=== PATIENT | male | born 1985 | race Two or more races ===

== ENCOUNTER 2021-04-02 09:13 | Emergency (ER) | payer SELFPAY ==
[~2021-04-02] VITALS: Ht 170.2 cm; Wt 136.1 kg
[2021-04-02 09:33] VITALS: BP 169/111
== END 2021-04-02 11:19 | disposition home or self-care (01) ==
LOC: ER 09:13
DX: S93.401A Sprain of unspecified ligament of right ankle, initial encounter (principal); W19.XXXA Unspecified fall, initial encounter; Y93.89 Activity, other specified; Y92.89 Other specified places as the place of occurrence of the external cause; Y99.8 Other external cause status
CPT/HCPCS: 73610

== ENCOUNTER 2022-10-22 09:54 | Emergency (ER) | payer MEDICAID ==
[~2022-10-22] VITALS: Ht 170.2 cm; Wt 155.0 kg
[2022-10-22 13:30] LABS: Basophils # (auto) 0 10 ^3/uL (0-0.2); Basophils % (auto) 0.2 % (0.0-2.0); Eosinophils # (auto) 0.1 10 ^3/uL (0-0.8); Eosinophils % (auto) 0.6 % (0.0-7.0); Hematocrit 43.2 % (41.0-53.0); Hemoglobin 15.2 g/dL (13.5-17.5); Lymphocytes # (auto) 1.8 10 ^3/uL (0.4-5.4); Lymphocytes % (auto) 16.8 % (10.0-50.0); Mean Corpuscular Hemoglobin 31.8 pg (28.0-32.0); Mean Corpuscular Hgb Conc. 35.1 g/dL (32.0-36.0); Mean Corpuscular Volume 90.5 fL (80.0-100.0); Monocytes # (auto) 0.5 10 ^3/uL (0-1.3); Monocytes % (auto) 4.4 % (0.0-12.0); Neutrophils # (auto) 8.1 10 ^3/uL (1.6-8.6); Nucleated Red Blood Cells % 0.2 %; Red Blood Cells 4.77 10^6/uL (4.5-5.90); Red Cell Distribution Width 12.2 % (11.8-14.3); White Blood Cell 10.4 10^3/uL (4.4-10.8)
[2022-10-22 13:44] LABS: Albumin 3.7 g/dL (3.4-5.0); BUN/Creatinine Ratio 18.7; Calcium 8.9 mg/dL (8.5-10.1); Potassium 3.8 mmol/L (3.5-5.1)
[2022-10-22 13:47] LABS: Bilirubin, Total 0.4 mg/dL (0.2-1.0); Total Protein 7.7 g/dL (6.4-8.2)
[2022-10-22 14:09] VITALS: BP 153/106
== END 2022-10-22 14:28 | disposition home or self-care (01) ==
LOC: ER 09:54
DX: I73.9 Peripheral vascular disease, unspecified (principal); E66.01 Morbid (severe) obesity due to excess calories; Z68.43 Body mass index [BMI] 50.0-59.9, adult
CPT/HCPCS: 36415; 80053; 85025; 93971

== ENCOUNTER 2025-07-01 12:05 | Inpatient (IN) | payer MEDICAID ==
[~2025-07-01] VITALS: Ht 170.2 cm; Wt 161.5 kg
--- NOTE | 2025-07-01 13:15 | ED.PDOC ---
History of Present Illness(SKN HPI Comments This is a 40 year old male presenting to the ED with chief complaint of abscesses. Patient reports that he has been experiencing an painful, red, swollen region to his right buttocks that has been draining pus for the past few days along with another swollen, painful region with drainage to the left groin. Patient relays that he followed up with his PCP today and was advised to come to the ED for further evaluation. Patient denies any fever, chills, or bleeding. Chief Complaint: Abscess Time Seen by MD: 13:14 History of Present Illness: Nurses Notes, Medications, Allergies Allergies: Coded Allergies: NO KNOWN ALLERGIES (Unverified , 04/02/21) Information Source: Patient Mode of Arrival: Ambulatory Severity: Moderate Timing: Days Duration: Since onset Prehospital treatment: None Location: Buttock, Other (Groin) Mechanism: Spontaneous Onset Object: None Condition of Object: None Retained Foreign Body: No Wound Type: Abscess Immunization Status of Animal: NA Past Medical History PAST MEDICAL HISTORY: Denies Surgical History: Denies all surgeries Family History Family History: Reviewed,noncontributory to illness Social History Smoker: Non-Smoker Alcohol: Denies ETOH Use Drugs: Denies Drug Use Lives In: Home Constitutional: denies: chills, diaphoresis, fatigue, fever, malaise, sweats, weakness, others EENTM: denies: blurred vision, double vision, ear bleeding, ear discharge, ear drainage, ear pain, ear ringing, eye pain, eye redness, hearing loss, mouth pain, mouth swelling, nasal discharge, nose bleeding, nose congestion, nose pain, photophobia, tearing, throat pain, throat swelling, voice changes, others Respiratory: denies: cough, hemoptysis, orthopnea, SOB at rest, shortness of breath, SOB with excertion, stridor, wheezing, others Cardiovascular: denies: chest pain, dizzy spells, diaphoresis, Dyspnea on exertion, edema, irregular heart beat, left arm pain, lightheadedness, palpitations, PND, syncope, others Gastrointestinal: denies: abdomen distended, abdominal pain, blood streaked bowels, constipated, diarrhea, dysphagia, difficulty swallowing, hematemesis, melena, nausea, poor appetite, poor fluid intake, rectal bleeding, rectal pain, vomiting, others Genitourinary: denies: burning, dysuria, flank pain, frequency, hematuria, incontinence, penile discharge, penile sore, pain, testicle pain, testicle swelling, urgency, others Neurological: denies: dizziness, fainting, headache, left sided numbness, left sided weakness, numbness, paresthesia, pre-existing deficit, right sided numbn ess, right sided weakness, seizure, speech problems, tingling, tremors, weakness, others Musculoskeletal: denies: back pain, gout, joint pain, joint swelling, muscle pain, muscle stiffness, neck pain, others Integumetry: reports: wounds (Abscess); denies: bruises, change in color, change in hair/nails, dryness, laceration, lesions, lumps, rash, others Allergic/Immunocompromised: denies: Difficulty Healing, Frequent Infections, Hives, Itching, others Hematologic/Lymphatic: denies: anemia, blood clots, easy bleeding, easy bruis ing, swollen glands, others Endocrine: denies: excessive hunger, excessive sweating, excessive thirst, exc essive urination, flushing, intolerance to cold, intolerance to heat, unexplained weight gain, unexplained weight loss, others Psychiatric: denies: anxiety, bipolar disorder, depression, hopeless, panic disorder, schizophrenia, sleepless, suicidal, others All Other Systems: Reviewed and Negative Physical Exam General Appearance: No Apparent Distress, Normal HEENT: Normal ENT Inspection, Pharynx Normal, TMs Normal Neck: Full Range of Motion, Non-Tender, Normal, Normal Inspection Respiratory: Chest Non-Tender, Lungs Clear, No Accessory Muscle Use, No Respiratory Distress, Normal Breath Sounds Cardiovascular: No Edema, No JVD, No Murmur, No Gallop, Normal Peripheral Pulses, Regular Rate/Rhythm Breast Exam: Deferred Gastrointestinal: No Organomegaly, Non Tender, No Pulsatile Mass, Normal Bowel Sounds, Soft Genitalia: Deferred Pelvic: Deferred Rectal: Deferred Extremities: No calf tenderness, Normal capillary refill, Normal inspection, Normal range of motion, Non-tender, No pedal edema Musculoskeletal : Apperance: Normal Neurologic: Alert, envelope maker II-XII nml as Tested, No Motor Deficits, Normal Affect, Normal Mood, No Sensory Deficits Cerebellar Function: Normal Reflexes: Normal Skin: Dry, Normal Color, Warm, Other (Large abscess to right buttock and left groin with purulent drainage.) Lymphatic: No Adenopathy Was a procedure done? Was a procedure done?: No Differential Diagnosis (INTG) Differential Diagnosis: Cellulitis Differential Diagnosis: Abscess X-Ray, Labs, Meds, VS Vital Signs Date Time Temp Pulse Resp B/P (MAP) Pulse Ox O2 Delivery O2 Flow Rate FiO2 07/01/25 15:00 97.4 93 16 149/94 (112) 95 97.4 07/01/25 12:07 97.9 116 20 148/111 97 97.9 Lab Test 07/01/25 13:37 Range/Units White Blood Count 12.1 H 4.4-10.8 10^3/uL Red Blood Count 4.83 4.5-5.90 10^6/uL Hemoglobin 15.5 13.5-17.5 g/dL Hematocrit 45.0 41.0-53.0 % Mean Corpuscular Volume 93.2 80.0-100.0 fL Mean Corpuscular Hemoglobin 32.1 H 28.0-32.0 pg Mean Corpuscular Hemoglobin Concent 34.4 32.0-36.0 g/dL Red Cell Distribution Width 12.9 11.8-14.3 % Platelet Count 281 140-450 10^3/uL Mean Platelet Volume 7.8 6.9-10.8 fL Neutrophils (%) (Auto) 76.1 37.0-80.0 % Lymphocytes (%) (Auto) 15.2 10.0-50.0 % Monocytes (%) (Auto) 7.8 0.0-12.0 % Eosinophils (%) (Auto) 0.6 0.0-7.0 % Basophils (%) (Auto) 0.3 0.0-2.0 % Neutrophils # (Auto) 9.2 H 1.6-8.6 10 ^3/uL Lymphocytes # (Auto) 1.8 0.4-5.4 10 ^3/uL Monocytes # (Auto) 0.9 0-1.3 10 ^3/uL Eosinophils # (Auto) 0.1 0-0.8 10 ^3/uL Basophils # (Auto) 0 0-0.2 10 ^3/uL Nucleated Red Blood Cells 0.1 % Prothrombin Time 9.8 9.3-11.8 sec Prothrombin Time INR 0.92 0.9-1.15 Activated Partial Thromboplast Time 29.5 24.5-34.5 SEC Sodium Level 138 136-145 mmol/L Potassium Level 4.5 3.5-5.1 mmol/L Chloride Level 107 98-107 mmol/L Carbon Dioxide Level 24 20-31 mmol/L Anion Gap 7 5-15 Blood Urea Nitrogen 15 9-23 mg/dL Creatinine 0.92 0.700-1.30 mg/dL Glomerular Filtration Rate Calc 108 >90 mL/min BUN/Creatinine Ratio 16.3 10.0-20.0 Serum Glucose 96 74-106 mg/dL Calcium Level 9.5 8.7-10.4 mg/dL Time of 1ST Reevaluation: 14:13 Reevaluation 1ST: Improved Patient Education/Counseling: Diagnosis, Treatment Family Education/Counseling: No Family Present SEPSIS Sepsis Screen Date sepsis recognized/suspect: Jul 01, 2025 Time Sepsis recognized/suspect: 1212 Recent Procedure: No On Antibiotic Therapy: No Respiratory Rate >20: No Heart Rate >90: Yes Temp<36 C (96.8 F) or >38.3 C: No SBP <90 or MAP <65 mmHG: No New Acute Mental Status Change: No Is the patient on CPAP, BIPAP,: No Physician Orders Ct Ab Pel With Iv Con Only (07/01/25 15:51) Vital Signs Date Time Temp Pulse Resp B/P (MAP) Pulse Ox O2 Delivery O2 Flow Rate FiO2 07/01/25 15:00 97.4 93 16 149/94 (112) 95 97.4 07/01/25 12:07 97.9 116 20 148/111 97 97.9 Laboratory Tests Test 07/01/25 13:37 White Blood Count 12.1 10^3/uL (4.4-10.8) H Departure 1 Departure Time of Disposition: 17:33 (Patient with multiple purulent abscesses surrounding by a worsening cellulitis. We will empirically cover patient with antibiotics and admit patient for further workup and expert consultation) Impression: Primary Impression: Cellulitis and abscess of buttock Disposition: ADMITTED INPATIENT Admit to: Med Surg Condition: Serious Critical Care Note Critical Care Time?: No Stability Stability form required: No Heart Score Heart Score: Heart Score Response (Comments) Value History N/A 0 EKG N/A 0 Age N/A 0 Risk Factors N/A 0 Troponin N/A 0 Total 0 I personally scribed for DAKOTA COPE MD ([email or web address]) on 07/01/25 at 13:15. Electronically submitted by Dhaval Olson ([email or web address]). DAKOTA COPE MD Jul 01, 2025 13:15
[2025-07-01 13:45] LABS: Hematocrit 45.0 % (41.0-53.0); Hemoglobin 15.5 g/dL (13.5-17.5); Mean Corpuscular Hemoglobin 32.1 pg (28.0-32.0); Mean Corpuscular Volume 93.2 fL (80.0-100.0); Nucleated Red Blood Cells % 0.1 %
[2025-07-01 13:56] LABS: Chloride 107 mmol/L (98-107); Potassium 4.5 mmol/L (3.5-5.1); Sodium 138 mmol/L (136-145)
[2025-07-01 13:57] LABS: Anion Gap 7 (5-15); Calcium 9.5 mg/dL (8.7-10.4); Carbon Dioxide 24 mmol/L (20-31)
[2025-07-01 13:59] LABS: INR 0.92 (0.9-1.15); Partial Thromboplastin Time 29.5 SEC (24.5-34.5); Prothrombin Time 9.8 sec (9.3-11.8)
[2025-07-01 14:02] LABS: BUN/Creatinine Ratio 16.3 (10.0-20.0); Blood Urea Nitrogen 15 mg/dL (9-23); Glucose 96 mg/dL (74-106)
[2025-07-01] MEDS: IOHEXOL 300 MG/ML 100ML BOTTLE IJ ONE (16:27)
--- NOTE | 2025-07-01 17:12 | DVH ---
Exam: CT CT AB PEL WITH IV CON ONLY History: concern for perirecal abscess Comparison Study: None TECHNIQUE: Multidetector CT of the abdomen pelvis with IV contrast. Axial, coronal and sagittal multi planar reformats were obtained from the axial data set by the technologist. Radiation Dose Information: CT Dose: CTDI volume is 27.62 mGy. Dose-length product is 3.92 mGy*cm FINDINGS: The lung bases are clear. Partially visualized heart is unremarkable. Mild hepatomegaly. Otherwise, liver, spleen, pancreas and adrenal glands are unremarkable. Cholelith iasis with no CT evidence of acute cholecystitis. Polycystic kidneys with the largest on the left measuring up to 2.8 cm and the largest on the right m easuring up to 4.5 cm. There are additional hypodense bilateral renal lesions which do not measure si mple fluid with additional multiple subcentimeter hypodense lesions too small to characterize. No Hyd ro nephrosis . 2 mm right renal lower pole nonobstructing calculus. Bilateral ureters and urinary jacky dder unremarkable. Prostate is unremarkable. Stomach is unremarkable. Small bowel loops unremarkable. Appendix is unremarkable. Small to moderate amount of fecal material within the colon. Sigmoid diverticulosis without diverticulitis. No evidence of intraperitoneal free air or free fluid. No evidence of aortic aneurysm or dissection. No significant mesenteric . No evidence of acute osseous abnormalities. lymphadenopathy. IMPRESSION: Cholelithiasis without evidence of acute cholecystitis. Polycystic kidneys with additional multiple hypodense hepatic lesions and subcentimeter hepatic lesio ns which do not measure as simple fluid . Ultrasound should be considered for further evaluation. No obvious perirectal abscess is noted. Additional findings as above.
[2025-07-01] MEDS: VANCOMYCIN 1GM/250ML KIT 250 ML IV SCH (17:45)
[2025-07-01 19:42] LABS: Urine Protein, UAD Negative (Negative)
[2025-07-01 21:04] VITALS: PULSE 74; RESP 13; O2SAT 96
[2025-07-01] MEDS ORDERED: DOCUSATE SOD 100 MG CAP PO PRN (22:15)
[2025-07-01] MEDS ORDERED: ONDANSETRON HCL 4 MG/2 ML VIAL IV PRN (22:15)
[2025-07-01] MEDS ORDERED: MORPHINE SULFATE INJ 2 MG/ml SYRG IV PRN (22:15)
[2025-07-01 23:36] VITALS: BP 132/59; PULSE 102; TEMP 98; O2SAT 93
[2025-07-01 23:48] LABS: Barbiturate Scree,Urine Neg (NEGATIVE); Opiate Scree,Urine Neg (NEGATIVE); Phencyclidine Screen, Urine Neg (NEGATIVE)
[2025-07-01 23:49] LABS: Amphetamine Screen, Urine Neg (NEGATIVE); Benzodiazephine Screen, Urine Neg (NEGATIVE); Cannabinoid Screen, Urine Neg (NEGATIVE); Cocaine Screen, Urine Neg (NEGATIVE)
[2025-07-02] VITALS (8 sets, daily range): BP systolic 107–132; BP diastolic 1–84; PULSE 48–105; RESP 16–20; TEMP 97.7–98; O2SAT 94–97
[2025-07-02] MEDS ORDERED: VANCOMYCIN PER PHARMACY 0 MG IV SCH (00:15)
[2025-07-02] MEDS: CEFEPIME 2GM/50ML NS 50 ML IV ONE (01:14)
[2025-07-02 01:19] LABS: Albumin 4.3 g/dL (3.2-4.8); Alkaline Phosphatase 116.0 U/L (46-116); Bilirubin, Direct 0.2 mg/dL (<0.3); Bilirubin, Total 0.8 mg/dL (0.2-1.0); Cholesterol 174.0 mg/dL (< 200); Total Protein 7.5 g/dL (5.7-8.2)
[2025-07-02 01:28] LABS: Alanine Aminotransferase 88.0 U/L (7-40); HDL Cholesterol 33.0 mg/dL (40-59); Triglycerides 165.0 mg/dL (< 150)
[2025-07-02] MEDS ORDERED: LISI40TA16 PO (01:53)
[2025-07-02 07:39] LABS: Hematocrit 41.9 % (41.0-53.0); Hemoglobin 14.4 g/dL (13.5-17.5); Mean Corpuscular Hemoglobin 32.4 pg (28.0-32.0); Mean Corpuscular Volume 94.0 fL (80.0-100.0); Nucleated Red Blood Cells % 0.0 %
[2025-07-02 07:41] LABS: Albumin 4.0 g/dL (3.2-4.8); Alkaline Phosphatase 106 U/L (46-116); Anion Gap 7 (5-15); BUN/Creatinine Ratio 16.0 (10.0-20.0); Blood Urea Nitrogen 15 mg/dL (9-23); Calcium 9.1 mg/dL (8.7-10.4); Carbon Dioxide 27 mmol/L (20-31); Chloride 106 mmol/L (98-107); Potassium 4.2 mmol/L (3.5-5.1); Sodium 140 mmol/L (136-145); Total Protein 7.0 g/dL (5.7-8.2)
[2025-07-02 07:42] LABS: Bilirubin, Total 0.8 mg/dL (0.2-1.0)
[2025-07-02 07:55] LABS: Alanine Aminotransferase 79 U/L (7-40); Glucose 112 mg/dL (74-106)
--- NOTE | 2025-07-02 08:35 | DVHHPRES ---
History of Present Illness Resident Creating Document: TOBY CHAWLA RESIDENT History of Present Illness Tony Norwood is a 40-year-old male with past medical history of hypertension, came to the ED with chief complaints of rectal pain, groin pain since 1 week. Patient states that 1st he had a rash on his right buttock and groin which slowly increased in size and now is draining blood and pus. Patient also states that he had a fever on Saturday, is sexually active. CT scan showed Cholelithiasis without evidence of acute cholecystitis. Polycystic kidneys with additional multiple hypodense hepatic lesions and subcentimeter hepatic lesions which do not measure as simple fluid: further workup needed. Patient is admitted for further evaluation management. Past surgical history: Denies Family history: Noncontributory Personal history: 5-6 cigarettes a day, occasionally drinks, denies any drug use Lives with: Family PCP: Dr. Lynch Review of Systems Constitutional: No: Fever, Chills, Sweats, Weakness, Malaise, Other Eyes: No: Pain, Vision change, Conjunctivae inflammation, Eyelid inflammation, Other, Redness ENT: No: Ear pain, Ear discharge, Nose pain, Nose discharge, Nose congestion, Mouth pain, Mouth swelling, Throat pain, Throat swelling, Other Respiratory: No: Cough, Dry, Shortness of breath, SOB with excertion, Wheezing, Hemoptysis, Pleuritic Pain, Sputum, Wheezing, Other Cardiovascular: No: Chest Pain, Palpitations, Orthopnea, Paroxysmal Noc. Dyspnea, Edema, Lt Headedness, Other Gastrointestinal: Other (Rectal Pain); No: Nausea, Vomiting, Abdominal Pain, Diarrhea, Constipation, Melena, Hematochezia Genitourinary: No Dysuria, No Frequency, No Incontinence, No Hematuria, No Retention, No Other Musculoskeletal: No: other, neck pain, shoulder pain, arm pain, back pain, hand pain, leg pain, foot pain Skin: Other (Rectal pain); No: Rash, Lesions, Jaundice, Bruising Neurological: No: Weakness, Numbness, Incoordination, Change in speech, Confusion, Seizures, Other Allergies: Coded Allergies: NO KNOWN ALLERGIES (Unverified , 04/02/21) Medications Current Medications Medications Dose Ordered Sig/Derrick Route Start Time Stop Time Status Last Admin Dose Admin Ondansetron HCl 4 mg Q4HP PRN IV 07/01/25 22:15 Docusate Sodium 100 mg BIDPRN PRN PO 07/01/25 22:15 Morphine Sulfate 2 mg Q4HPRN PRN IV 07/01/25 22:15 Vancomycin HCl 0 ml @ 0 mls/hr UD IV 07/02/25 00:15 UNV Exam Vital Signs Vital Signs Date Time Temp Pulse Resp B/P (MAP) Pulse Ox O2 Delivery O2 Flow Rate FiO2 07/02/25 05:00 98.0 77 18 123/75 (91) 95 98.0 07/01/25 23:36 Room Air* 0 21 Exam General: Patient alert and oriented in person, place and time. Patient following commands. In moderate distress HEENT: Normocephalic, atraumatic, moist mucous membranes Respiratory/pulmonary: Clear lungs bilaterally, vesicular murmurs present in almost all lung crump, no associated crackles or wheezes. Cardiovascular: Normal heart sounds S1 and S2 with no associated murmurs Abdomen: Abdomen nondistended, there is no pain to palpation in any of the abdominal quadrants, no palpable masses. Extremities: There is no peripheral edema present at the lower extremities. Peripheral Pulses: 3+ Radial (R). 3+ Radial (L). 3+ Dorsalis pedis (R). 3+ Dorsalis pedis(L) Skin: No rashes or pruritus, there is no sacral edema present at this time. Rectal abscess with drainage of pus, groin abscess with drainage of blood and pus Neurological: Intact cranial nerves with no focal neurologic deficits Labs/Xrays Labs Test 07/02/25 06:54 07/02/25 01:34 07/01/25 23:40 07/01/25 18:55 Range/Units White Blood Count 8.4 # 4.4-10.8 10^3/uL Red Blood Count 4.46 L 4.5-5.90 10^6/uL Hemoglobin 14.4 13.5-17.5 g/dL Hematocrit 41.9 41.0-53.0 % Mean Corpuscular Volume 94.0 80.0-100.0 fL Mean Corpuscular Hemoglobin 32.4 H 28.0-32.0 pg Mean Corpuscular Hemoglobin Concent 34.5 32.0-36.0 g/dL Red Cell Distribution Width 12.8 11.8-14.3 % Platelet Count 234 140-450 10^3/uL Mean Platelet Volume 7.8 6.9-10.8 fL Neutrophils (%) (Auto) 72.5 37.0-80.0 % Lymphocytes (%) (Auto) 17.8 10.0-50.0 % Monocytes (%) (Auto) 8.5 0.0-12.0 % Eosinophils (%) (Auto) 0.9 0.0-7.0 % Basophils (%) (Auto) 0.3 0.0-2.0 % Neutrophils # (Auto) 6.1 1.6-8.6 10 ^3/uL Lymphocytes # (Auto) 1.5 0.4-5.4 10 ^3/uL Monocytes # (Auto) 0.7 0-1.3 10 ^3/uL Eosinophils # (Auto) 0.1 0-0.8 10 ^3/uL Basophils # (Auto) 0 0-0.2 10 ^3/uL Nucleated Red Blood Cells 0.0 % Sodium Level 140 136-145 mmol/L Potassium Level 4.2 3.5-5.1 mmol/L Chloride Level 106 98-107 mmol/L Carbon Dioxide Level 27 20-31 mmol/L Anion Gap 7 5-15 Blood Urea Nitrogen 15 9-23 mg/dL Creatinine 0.94 0.700-1.30 mg/dL Glomerular Filtration Rate Calc 105 >90 mL/min BUN/Creatinine Ratio 16.0 10.0-20.0 Serum Glucose 112 H 74-106 mg/dL Calcium Level 9.1 8.7-10.4 mg/dL Total Bilirubin 0.8 0.2-1.0 mg/dL Aspartate Amino Transferase (AST) 25 13-40 U/L Alanine Aminotransferase (ALT) 79 H 7-40 U/L Alkaline Phosphatase 106 46-116 U/L Total Protein 7.0 5.7-8.2 g/dL Albumin 4.0 3.2-4.8 g/dL Lactic Acid Level 0.8 0.4-2.0 mmol/L Direct Bilirubin 0.2 <0.3 mg/dL Triglycerides Level 165 H < 150 mg/dL Cholesterol Level 174 < 200 mg/dL LDL Cholesterol 134 H < 100 mg/dL HDL Cholesterol 33 L 40-59 mg/dL Urine Color Yellow Yellow Urine Clarity Clear Clear Urine pH 6.0 5.0-9.0 Urine Specific [place] > 1.050 H 1.001-1.035 Urine Protein Negative Negative Urine Ketones Negative Negative Urine Blood Negative Negative /uL Urine Nitrite Negative Negative Urine Bilirubin Negative Negative Urine Urobilinogen Normal Negative mg/dL Urine Leukocyte Esterase Negative Negative /uL Urine RBC 2 0 - 3 /hpf Urine Microscopic WBC 5 H 0-3 /HPF Urine Squamous Epithelial Cells Few <5 /hpf Urine Bacteria None seen None Seen /hpf Urine Glucose Normal Normal mg/dL Urine Opiates Screen Neg NEGATIVE Urine Fentanyl Screen Neg NEGATIVE Urine Barbiturates Screen Neg NEGATIVE Urine Phencyclidine Screen Neg NEGATIVE Urine Amphetamines Screen Neg NEGATIVE Urine Benzodiazepines Screen Neg NEGATIVE Urine Cocaine Screen Neg NEGATIVE Urine Cannabinoids Screen Neg NEGATIVE Test 07/01/25 13:37 Range/Units Erythrocyte Sedimentation Rate 46 H 0-20 mm/hr Prothrombin Time 9.8 9.3-11.8 sec Prothrombin Time INR 0.92 0.9-1.15 Activated Partial Thromboplast Time 29.5 24.5-34.5 SEC Hemoglobin A1c 5.0 <5.7 % A1C C-Reactive Protein High Sensitivity 6.88 H <1.0 mg/dL SEPSIS Sepsis Screen Date sepsis recognized/suspect: Jul 01, 2025 Time Sepsis recognized/suspect: 3 Recent Procedure: No On Antibiotic Therapy: No Respiratory Rate >20: No Heart Rate >90: Yes Temp<36 C (96.8 F) or >38.3 C: No SBP <90 or MAP <65 mmHG: No New Acute Mental Status Change: No Is the patient on CPAP, BIPAP,: No Physician Orders Education - Smoking Cessation (07/02/25 01:17) * Smoking Cessation Consult (07/02/25 01:17) * Wound Consult (07/02/25 ) Vital Signs Date Time Temp Pulse Resp B/P (MAP) Pulse Ox O2 Delivery O2 Flow Rate FiO2 07/02/25 05:00 98.0 77 18 123/75 (91) 95 98.0 07/02/25 01:00 98.0 105 20 132/59 (83) 94 98.0 Laboratory Tests Test 07/02/25 01:34 07/02/25 06:54 Lactic Acid Level 0.8 mmol/L (0.4-2.0) White Blood Count 8.4 10^3/uL (4.4-10.8) # Medications Medications Dose Ordered Sig/Derrick Route Start Time Stop Time Status Last Admin Dose Admin Cefepime HCl 50 ml @ 50 mls/hr ONCE ONCE IV 07/02/25 00:15 07/02/25 01:14 DC 07/02/25 01:14 50 MLS/HR Assessment/Plan Assessment/Plan # sepsis due to the abscess - CT abdomen showed Cholelithiasis without evidence of acute cholecystitis. Polycystic kidneys with additional multiple hypodense hepatic lesions and subcentimeter hepatic lesions which do not measure as simple fluid . Ultrasound should be considered for further evaluation. No obvious perirectal abscess is noted. 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 Sawant , patient and nurse Plan discussed with: Patient My Orders Orders - TOBY CHAWLA Procedure Category Date Status Time Admit ADMIT 07/01/25 Transmitted 22:11 Allergies JULIO 07/01/25 In Process 22:11 Code Status CODE 07/01/25 Transmitted 22:11 Ondansetron Hcl PHA 07/01/25 In Process (Zofran) 22:15 Docusate Sodium PHA 07/01/25 In Process Capsule (Colace 22:15 Npo (Nothing By DIET 07/02/25 Transmitted Mouth) Diet Breakfast Condition: Serious JULIO 07/01/25 In Process 22:11 Bedrest With Bathroom JULIO 07/01/25 In Process Privileg 22:11 Morphine Sulfate PHA 07/01/25 In Process Injection 22:15 Blood Culture LUKE 07/01/25 In Process 23:02 Vancomycin Per PHA 07/02/25 Pending Pharmacy 00:15 Education - Smoking JULIO 07/02/25 In Process Cessation 01:17 * Smoking Cessation CONS 07/02/25 Transmitted Consult 01:17 * Wound Consult CONS 07/02/25 Transmitted Date of Service: Jul 02, 2025 Billing Provider: TOBY CHAWLA Common Visit Codes: [id number] INP/OBS CARE (HIGH) Secondary Visit Codes: [id number] CARE PLAN 30 MINUTES TOBY CHAWLA RESIDENT Jul 02, 2025 08:35
[2025-07-02] MEDS: LACTATED RINGER'S 1,000 ML IV ONE (08:45)
--- NOTE | 2025-07-02 09:26 | DVHINCON2 ---
Date of service: Jul 02, 2025 Family History: Diabetes mellitus G8 MOTHER FH: liver cancer Hypertension G8 MOTHER Allergies: Coded Allergies: NO KNOWN ALLERGIES (Unverified , 04/02/21) Home Meds Reported Medications Lisinopril (Lisinopril) 40 Mg Tab, 1 TAB PO DAILY 07/02/25 Current Medications Current Medications Medications (Trade) Dose Ordered Sig/Derrick Route PRN Reason Start Time Stop Time Status Last Admin Vancomycin HCl 250 ml @ 250 mls/hr Q1H IV 07/01/25 17:45 07/01/25 19:44 DC 07/01/25 18:45 Ondansetron HCl (Zofran) 4 mg Q4HP PRN IV NAUSEA / VOMITING 07/01/25 22:15 Docusate Sodium (Colace Capsule) 100 mg BIDPRN PRN PO FOR CONSTIPATION 07/01/25 22:15 Morphine Sulfate 2 mg Q4HPRN PRN IV SEVERE PAIN (7-10 PAIN SCALE) 07/01/25 22:15 Vancomycin HCl 0 ml @ 0 mls/hr UD IV 07/02/25 00:15 UNV Lactated Ringer's 1,000 ml @ 125 mls/hr Q8H IV 07/02/25 09:45 Lisinopril (Zestril Tablet) 40 mg DAILY PO 07/02/25 10:00 Vital Signs Vital Signs Date Time Temp Pulse Resp B/P (MAP) Pulse Ox O2 Delivery O2 Flow Rate FiO2 07/02/25 05:00 98.0 77 18 123/75 (91) 95 98.0 07/01/25 23:36 Room Air* 0 21 Labs/Diagnostic Data Labs Test 07/02/25 06:54 07/02/25 01:34 07/01/25 23:40 07/01/25 18:55 Range/Units White Blood Count 8.4 # 4.4-10.8 10^3/uL Red Blood Count 4.46 L 4.5-5.90 10^6/uL Hemoglobin 14.4 13.5-17.5 g/dL Hematocrit 41.9 41.0-53.0 % Mean Corpuscular Volume 94.0 80.0-100.0 fL Mean Corpuscular Hemoglobin 32.4 H 28.0-32.0 pg Mean Corpuscular Hemoglobin Concent 34.5 32.0-36.0 g/dL Red Cell Distribution Width 12.8 11.8-14.3 % Platelet Count 234 140-450 10^3/uL Mean Platelet Volume 7.8 6.9-10.8 fL Neutrophils (%) (Auto) 72.5 37.0-80.0 % Lymphocytes (%) (Auto) 17.8 10.0-50.0 % Monocytes (%) (Auto) 8.5 0.0-12.0 % Eosinophils (%) (Auto) 0.9 0.0-7.0 % Basophils (%) (Auto) 0.3 0.0-2.0 % Neutrophils # (Auto) 6.1 1.6-8.6 10 ^3/uL Lymphocytes # (Auto) 1.5 0.4-5.4 10 ^3/uL Monocytes # (Auto) 0.7 0-1.3 10 ^3/uL Eosinophils # (Auto) 0.1 0-0.8 10 ^3/uL Basophils # (Auto) 0 0-0.2 10 ^3/uL Nucleated Red Blood Cells 0.0 % Sodium Level 140 136-145 mmol/L Potassium Level 4.2 3.5-5.1 mmol/L Chloride Level 106 98-107 mmol/L Carbon Dioxide Level 27 20-31 mmol/L Anion Gap 7 5-15 Blood Urea Nitrogen 15 9-23 mg/dL Creatinine 0.94 0.700-1.30 mg/dL Glomerular Filtration Rate Calc 105 >90 mL/min BUN/Creatinine Ratio 16.0 10.0-20.0 Serum Glucose 112 H 74-106 mg/dL Calcium Level 9.1 8.7-10.4 mg/dL Total Bilirubin 0.8 0.2-1.0 mg/dL Aspartate Amino Transferase (AST) 25 13-40 U/L Alanine Aminotransferase (ALT) 79 H 7-40 U/L Alkaline Phosphatase 106 46-116 U/L Total Protein 7.0 5.7-8.2 g/dL Albumin 4.0 3.2-4.8 g/dL Lactic Acid Level 0.8 0.4-2.0 mmol/L Direct Bilirubin 0.2 <0.3 mg/dL Triglycerides Level 165 H < 150 mg/dL Cholesterol Level 174 < 200 mg/dL LDL Cholesterol 134 H < 100 mg/dL HDL Cholesterol 33 L 40-59 mg/dL Urine Color Yellow Yellow Urine Clarity Clear Clear Urine pH 6.0 5.0-9.0 Urine Specific [place] > 1.050 H 1.001-1.035 Urine Protein Negative Negative Urine Ketones Negative Negative Urine Blood Negative Negative /uL Urine Nitrite Negative Negative Urine Bilirubin Negative Negative Urine Urobilinogen Normal Negative mg/dL Urine Leukocyte Esterase Negative Negative /uL Urine RBC 2 0 - 3 /hpf Urine Microscopic WBC 5 H 0-3 /HPF Urine Squamous Epithelial Cells Few <5 /hpf Urine Bacteria None seen None Seen /hpf Urine Glucose Normal Normal mg/dL Urine Opiates Screen Neg NEGATIVE Urine Fentanyl Screen Neg NEGATIVE Urine Barbiturates Screen Neg NEGATIVE Urine Phencyclidine Screen Neg NEGATIVE Urine Amphetamines Screen Neg NEGATIVE Urine Benzodiazepines Screen Neg NEGATIVE Urine Cocaine Screen Neg NEGATIVE Urine Cannabinoids Screen Neg NEGATIVE Test 07/01/25 13:37 Range/Units Erythrocyte Sedimentation Rate 46 H 0-20 mm/hr Prothrombin Time 9.8 9.3-11.8 sec Prothrombin Time INR 0.92 0.9-1.15 Activated Partial Thromboplast Time 29.5 24.5-34.5 SEC Hemoglobin A1c 5.0 <5.7 % A1C C-Reactive Protein High Sensitivity 6.88 H <1.0 mg/dL Assessment morbidly obese male with spontaneously draining absacesses in the right groin and [id number] buttock, no need for surgical intervention, irrigate abscesses and c ontinue antibiotics Plan discussed with: Patient GENE BOYKIN MD Jul 02, 2025 09:26
[2025-07-02] MEDS: LACTATED RINGER'S 1,000 ML IV SCH (09:45)
[2025-07-02] MEDS: LISINOPRIL 20 MG TAB PO SCH (10:03)
[2025-07-02] MEDS ORDERED: VANCOMYCIN 1GM/250ML IV SCH (13:30)
[2025-07-02] MEDS: VANCOMYCIN 1GM/250ML KIT 250 ML IV SCH (14:00)
[2025-07-02] MEDS: CEFEPIME 2GM/50ML NS 50 ML IV SCH (14:00)
--- NOTE | 2025-07-02 16:15 | DVHPN2 ---
Progress Note Date Seen: Jul 02, 2025 Medical Necessity Reason Pt with a Central, PICC or Fol: No Subjective Patient reports: No new complaints Changes from previous H/P or p: No Changes Other Systems: Buttocks abscess Objective vital signs Vital Sign Date Time Temp Pulse Resp B/P (MAP) Pulse Ox O2 Delivery O2 Flow Rate FiO2 07/02/25 13:00 97.8 60 16 116/71 (86) 94 97.8 07/02/25 08:00 Room Air* 0 21 Total Intake and Output 07/01/25 07/01/25 07/02/25 15:00 23:00 07:00 Intake Total 200 ml Balance 200 ml medications Current Medications Medications Dose Ordered Sig/Derrick Route Start Time Stop Time Status Last Admin Dose Admin Ondansetron HCl 4 mg Q4HP PRN IV 07/01/25 22:15 Docusate Sodium 100 mg BIDPRN PRN PO 07/01/25 22:15 Morphine Sulfate 2 mg Q4HPRN PRN IV 07/01/25 22:15 Vancomycin HCl 0 ml @ 0 mls/hr UD IV 07/02/25 00:15 Lactated Ringer's 1,000 ml @ 125 mls/hr Q8H IV 07/02/25 09:45 07/02/25 09:45 125 MLS/HR Lisinopril 40 mg DAILY PO 07/02/25 10:00 07/02/25 10:03 40 MG Cefepime HCl 50 ml @ 12.5 mls/hr Q8HR IV 07/02/25 14:00 Vancomycin HCl 250 ml @ 250 mls/hr Q1H IV 07/02/25 13:30 07/02/25 15:29 Cancel Vancomycin HCl 250 ml @ 200 mls/hr Q8H IV 07/02/25 14:00 Examination: GENERAL:Normal, HEENT:Normal, NECK:Normal, LUNGS:Normal, CVS:Normal, ABDOMEN:Normal, MSK:Normal, SKIN:Abnormal, NEURO:Normal (Drainage of rectal abscess) laboratory and microbiology Laboratory Tests 07/02/25 06:54 Test 07/02/25 06:54 Range/Units Serum Glucose 112 H 74-106 mg/dL Labs and/or images reviewed: Labs reviewed by me, Image(s) reviewed by me Problem List/Assessment/Plan Problems(with codes): (1) Osteoarthritis (2) Cellulitis and abscess of buttock (3) Peripheral vascular disease with claudication Problem List/Assessment/Plan # sepsis due to the abscess - CT abdomen showed No obvious perirectal abscess is noted. - patient is started on vancomycin, cefepime IV - IV fluids given - wound consult, wound culture pending - blood culture, wound culture pending - deescalate antibiotic per culture - surgical right appreciated - continue medical management # dyslipidemia # elevated LFT - US shows no obstruction - contiue lipitor. dc if lft trend up. # cholelithiasis without evidence of acute cholecystitis # polycystic kidney disease with hypodense hepatic lesion # Subcentimeter hepatic lesion # osteoarthritis # grade 3 obesity BMI 54.3 -patient is advised on weight loss, lifestyle modification, diet for 13 minutes # hypertension secondary to PCKD -home medication Plan discussed with: Patient My Orders My Orders Orders - JOSE ALONSO MD Procedure Category Date Status Time Cleanse Wound With JULIO 07/02/25 In Process Wound Clean 10:57 * Dietary Consult CONS 07/02/25 Transmitted 14:52 Date of Service: Jul 02, 2025 Billing Provider: JOSE ALONSO MD Common Visit Codes: [id number] INP/OBS CARE(HIGH) JOSE ALONSO MD Jul 02, 2025 16:15
[2025-07-03] VITALS (8 sets, daily range): BP systolic 103–125; BP diastolic 66–88; PULSE 62–80; RESP 17–19; TEMP 97.3–97.8; O2SAT 96–100
[2025-07-03 08:02] LABS: Hematocrit 38.8 % (41.0-53.0); Hemoglobin 13.6 g/dL (13.5-17.5); Mean Corpuscular Hemoglobin 32.7 pg (28.0-32.0); Mean Corpuscular Volume 93.4 fL (80.0-100.0); Nucleated Red Blood Cells % 0.0 %
[2025-07-03] MEDS: VANCOMYCIN 500mg/100mL 100 ML IV ONE (16:30)
--- NOTE | 2025-07-03 17:20 | DVHPN2 ---
Progress Note Date Seen: Jul 03, 2025 Medical Necessity Reason Pt with a Central, PICC or Fol: No Subjective Patient reports: No new complaints, Feels better (Patient crump slightly improved no significant clinical changes) Objective vital signs Vital Sign Date Time Temp Pulse Resp B/P (MAP) Pulse Ox O2 Delivery O2 Flow Rate FiO2 07/03/25 14:23 97.7 72 18 108/78 (88) 96 97.7 07/03/25 08:00 Room Air* 0 21 Total Intake and Output 07/02/25 07/02/25 07/03/25 15:00 23:00 07:00 Intake Total 1000 ml 1970 ml 1400 ml Balance 1000 ml 1970 ml 1400 ml medications Current Medications Medications Dose Ordered Sig/Derrick Route Start Time Stop Time Status Last Admin Dose Admin Ondansetron HCl 4 mg Q4HP PRN IV 07/01/25 22:15 Docusate Sodium 100 mg BIDPRN PRN PO 07/01/25 22:15 Morphine Sulfate 2 mg Q4HPRN PRN IV 07/01/25 22:15 Vancomycin HCl 0 ml @ 0 mls/hr UD IV 07/02/25 00:15 Lactated Ringer's 1,000 ml @ 125 mls/hr Q8H IV 07/02/25 09:45 07/03/25 15:08 125 MLS/HR Lisinopril 40 mg DAILY PO 07/02/25 10:00 07/03/25 10:17 40 MG Cefepime HCl 50 ml @ 12.5 mls/hr Q8HR IV 07/02/25 14:00 07/03/25 15:07 12.5 MLS/HR Vancomycin HCl 250 ml @ 250 mls/hr Q1H IV 07/02/25 13:30 07/02/25 15:29 Cancel Vancomycin HCl 250 ml @ 166.667 mls/hr Q8H IV 07/03/25 22:00 Examination: GENERAL:Normal, HEENT:Normal, NECK:Normal, LUNGS:Normal, CVS:Normal, ABDOMEN:Normal, MSK:Normal, SKIN:Normal, NEURO:Normal, :Abnormal (Induration the groin buttocks region. Draining) laboratory and microbiology Laboratory Tests 07/03/25 07:05 07/02/25 06:54 Test 07/02/25 06:54 Range/Units Serum Glucose 112 H 74-106 mg/dL Microbiology Date/Time Source Procedure Growth Status 07/02/25 17:25 Buttock Gram Stain Pending Resulted 07/02/25 17:25 Buttock Wound Culture - Preliminary Resulted 07/01/25 23:40 Blood Blood Culture - Preliminary NO GROWTH AFTER 24 HOURS OF INCUBATION. Resulted Labs and/or images reviewed: Labs reviewed by me, Image(s) reviewed by me Problem List/Assessment/Plan Problem List/Assessment/Plan # sepsis due to the abscess - CT abdomen showed No obvious perirectal abscess is noted. - patient is started on vancomycin, cefepime IV - IV fluids given - wound consult, wound culture no growth to date - deescalate antibiotic per culture - surgical right appreciated - continue medical management # dyslipidemia # elevated LFT - US shows no obstruction - contiue lipitor. dc if lft trend up. # cholelithiasis without evidence of acute cholecystitis # polycystic kidney disease with hypodense hepatic lesion # Subcentimeter hepatic lesion # osteoarthritis # grade 3 obesity BMI 54.3 -patient is advised on weight loss, lifestyle modification, diet for 13 minutes # hypertension secondary to PCKD -home medication Plan discussed with: Patient Dietary Evaluation Review Comments: 1) Add 2g Na restriction to diet 2) Initiate MVI @ 1 tb qd 3) Initiate vitamin C @ 500 mg bid and zinc sulfate @ 220 mg for 7 days 4) Refer to outpatient RD for weight management 5) Continue to monitor I&O, labs, and skin integrity Expected Outcomes/Goals: 1) appetite and labs to improve 2) wound to improve 3) gradual wt loss 4) f/u in 3-5 days Date of Service: Jul 03, 2025 Billing Provider: JOSE ALONSO MD Common Visit Codes: [id number] INP/OBS CARE(MOD) JOSE ALONSO MD Jul 03, 2025 17:20
[2025-07-03] MEDS: VANCOMYCIN 1.5GM/250ML 250 ML IV SCH (21:34)
[2025-07-04] VITALS (8 sets, daily range): BP systolic 111–130; BP diastolic 63–73; PULSE 56–69; RESP 16–18; TEMP 95.6–98.5; O2SAT 94–99
[2025-07-04 07:14] LABS: Hematocrit 39.1 % (41.0-53.0); Hemoglobin 13.8 g/dL (13.5-17.5); Mean Corpuscular Hemoglobin 32.8 pg (28.0-32.0); Mean Corpuscular Volume 93.3 fL (80.0-100.0); Nucleated Red Blood Cells % 0.0 %
[2025-07-04 11:04] LABS: Albumin 3.6 g/dL (3.2-4.8); Alkaline Phosphatase 90 U/L (46-116); Anion Gap 8 (5-15); BUN/Creatinine Ratio 14.7 (10.0-20.0); Blood Urea Nitrogen 11 mg/dL (9-23); Calcium 8.9 mg/dL (8.7-10.4); Carbon Dioxide 21 mmol/L (20-31); Glucose 105 mg/dL (74-106); Potassium 4.5 mmol/L (3.5-5.1); Sodium 139 mmol/L (136-145); Total Protein 6.4 g/dL (5.7-8.2)
[2025-07-04 11:05] LABS: Bilirubin, Total 0.4 mg/dL (0.2-1.0)
[2025-07-04 11:08] LABS: Alanine Aminotransferase 49 U/L (7-40); Chloride 110 mmol/L (98-107)
--- NOTE | 2025-07-04 14:40 | DVHPN2 ---
Progress Note Date Seen: Jul 04, 2025 Medical Necessity Reason Pt with a Central, PICC or Fol: No Objective vital signs Vital Sign Date Time Temp Pulse Resp B/P (MAP) Pulse Ox O2 Delivery O2 Flow Rate FiO2 07/04/25 13:00 98.0 69 17 126/72 (90) 98 98.0 07/04/25 08:00 Room Air* 0 21 Total Intake and Output 07/03/25 07/03/25 07/04/25 15:00 23:00 07:00 Intake Total 725 ml 950 ml Balance 725 ml 950 ml medications Current Medications Medications Dose Ordered Sig/Derrick Route Start Time Stop Time Status Last Admin Dose Admin Ondansetron HCl 4 mg Q4HP PRN IV 07/01/25 22:15 Docusate Sodium 100 mg BIDPRN PRN PO 07/01/25 22:15 Morphine Sulfate 2 mg Q4HPRN PRN IV 07/01/25 22:15 Vancomycin HCl 0 ml @ 0 mls/hr UD IV 07/02/25 00:15 Lactated Ringer's 1,000 ml @ 125 mls/hr Q8H IV 07/02/25 09:45 07/03/25 15:08 125 MLS/HR Lisinopril 40 mg DAILY PO 07/02/25 10:00 07/04/25 09:52 40 MG Vancomycin HCl 250 ml @ 250 mls/hr Q1H IV 07/02/25 13:30 07/02/25 15:29 Cancel Vancomycin HCl 250 ml @ 166.667 mls/hr Q8H IV 07/03/25 22:00 07/04/25 05:00 166.667 MLS/HR Cefepime HCl 50 ml @ 12.5 mls/hr Q8H IV 07/04/25 17:00 Examination Generally-40 years old male, morbidly obese, sitting on bed. No apparent distress HEENT-atraumatic heart-regular rate and rhythm Lungs decreased breath sounds due to body habitus Abdomen soft nontender nondistended Musculoskeletal-no edema cyanosis. Posterior one continue the drain indurated Neuro-AO x3, no focal deficit laboratory and microbiology Laboratory Tests 07/04/25 06:05 Test 07/04/25 06:05 Range/Units Serum Glucose 105 74-106 mg/dL Microbiology Date/Time Source Procedure Growth Status 07/02/25 17:25 Buttock Gram Stain Pending Resulted 07/02/25 17:25 Buttock Wound Culture - Preliminary Resulted 07/01/25 23:40 Blood Blood Culture - Preliminary NO GROWTH AFTER 48 HOURS OF INCUBATION. Resulted Labs and/or images reviewed: Labs reviewed by me, Image(s) reviewed by me Problem List/Assessment/Plan Problem List/Assessment/Plan # sepsis due to the cellulitis with draining abscess - CT abdomen showed No obvious perirectal abscess is noted. - patient is started on vancomycin, cefepime IV - posterior wound continue drain - wound consult, wound culture no growth to date - deescalate antibiotic per culture - start. Trend down from six three today - surgical right appreciated - continue medical management # dyslipidemia # elevated LFT - US shows no obstruction - contiue lipitor. dc if lft trend up. # cholelithiasis without evidence of acute cholecystitis # polycystic kidney disease with hypodense hepatic lesion # Subcentimeter hepatic lesion # osteoarthritis # grade 3 obesity BMI 54.3 -patient is advised on weight loss, lifestyle modification, diet for 13 minutes # hypertension secondary to PCKD -home medication Plan discussed with: Patient My Orders My Orders Orders - JOSE ALONSO MD Procedure Category Date Status Time Complete Blood Count LAB 07/04/25 Logged 10:41 Comprehensive LAB 07/05/25 Verified Metabolic Panel 05:00 Comprehensive LAB 07/06/25 Verified Metabolic Panel 05:00 Comprehensive LAB 07/07/25 Verified Metabolic Panel 05:00 Comprehensive LAB 07/08/25 Verified Metabolic Panel 05:00 Comprehensive LAB 07/09/25 Verified Metabolic Panel 05:00 Complete Blood Count LAB 07/05/25 Verified 05:00 Complete Blood Count LAB 07/06/25 Verified 05:00 Complete Blood Count LAB 07/07/25 Verified 05:00 Complete Blood Count LAB 07/08/25 Verified 05:00 Complete Blood Count LAB 07/09/25 Verified 05:00 Dietary Evaluation Review Comments: 1) Add 2g Na restriction to diet 2) Initiate MVI @ 1 tb qd 3) Initiate vitamin C @ 500 mg bid and zinc sulfate @ 220 mg for 7 days 4) Refer to outpatient RD for weight management 5) Continue to monitor I&O, labs, and skin integrity Expected Outcomes/Goals: 1) appetite and labs to improve 2) wound to improve 3) gradual wt loss 4) f/u in 3-5 days Date of Service: Jul 04, 2025 Billing Provider: JOSE ALONSO MD Common Visit Codes: [id number] INP/OBS CARE(HIGH) JOSE ALONSO MD Jul 04, 2025 14:40
[2025-07-04] MEDS: CEFEPIME 2GM/50ML NS 50 ML IV SCH (16:32)
[2025-07-04] MEDS: CLINDAMYCIN 600MG IV 50 ML IV SCH (21:27)
[2025-07-05] VITALS (8 sets, daily range): BP systolic 107–129; BP diastolic 63–79; PULSE 56–84; RESP 17–19; TEMP 97.2–98; O2SAT 95–98
[2025-07-05 07:56] LABS: Hematocrit 38.4 % (41.0-53.0); Hemoglobin 13.6 g/dL (13.5-17.5); Mean Corpuscular Hemoglobin 33.2 pg (28.0-32.0); Mean Corpuscular Volume 93.9 fL (80.0-100.0); Nucleated Red Blood Cells % 0.1 %
[2025-07-05 08:12] LABS: Alanine Aminotransferase 39 U/L (7-40); Alkaline Phosphatase 85 U/L (46-116); Anion Gap 8 (5-15); BUN/Creatinine Ratio 11.5 (10.0-20.0); Blood Urea Nitrogen 10 mg/dL (9-23); Calcium 8.8 mg/dL (8.7-10.4); Carbon Dioxide 24 mmol/L (20-31); Glucose 99 mg/dL (74-106); Potassium 4.5 mmol/L (3.5-5.1); Sodium 140 mmol/L (136-145); Total Protein 6.5 g/dL (5.7-8.2)
[2025-07-05 08:13] LABS: Albumin 3.7 g/dL (3.2-4.8)
[2025-07-05 08:14] LABS: Bilirubin, Total 0.4 mg/dL (0.2-1.0)
[2025-07-05 08:18] LABS: Chloride 108 mmol/L (98-107)
--- NOTE | 2025-07-05 16:11 | DVHPN2 ---
Subjective Continue to report having drainage from wound Reviewed: Care Plan, H&P, Labs, Medications Changes from previous H/P or p: No Changes General: Per HPI Eyes: No Pain, No Vision change, No Conjunctivae inflammation, No Eyelid inflammation, No Other, No Redness ENT: No Ear pain, No Ear discharge, No Nose pain, No Nose discharge, No Nose congestion, No Mouth pain, No Mouth swelling, No Throat pain, No Throat swelling, No Other Cardiovascular: No Chest Pain, No Palpitations, No Orthopnea, No Paroxysmal Noc. Dyspnea, No Edema, No Lt Headedness, No Other Respiratory: No Cough, No Dry, No Shortness of breath, No SOB with excertion, No Wheezing, No Hemoptysis, No Pleuritic Pain, No Sputum, No Other Gastrointestinal: No Nausea, No Vomiting, No Abdominal Pain, No Diarrhea, No Constipation, No Melena, No Hematochezia; Other (Rectal Pain) Genitourinary: No Dysuria, No Frequency, No Incontinence, No Hematuria, No Retention, No Other Musculoskeletal: No other, No neck pain, No shoulder pain, No arm pain, No back pain, No hand pain, No leg pain, No foot pain Skin: No Rash, No Lesions, No Jaundice, No Bruising; Other (Rectal pain) Objective Vitals Vital Signs Date Time Temp Pulse Resp B/P (MAP) Pulse Ox O2 Delivery O2 Flow Rate FiO2 07/05/25 13:00 97.3 66 17 122/79 (93) 96 97.3 07/05/25 08:00 Room Air* 0 21 Intake/Output Intake and Output 07/05/25 07:00 Intake Total 1500 ml Balance 1500 ml Intake Oral 1400 ml IV Total 100 ml # Voids 4 # Bowel Movements 1 General Appearance: Alert, Oriented X3, Cooperative, No acute distress HEENT: Atraumatic, PERRLA Cardiovascular: Normal S1, Normal S2 Abdomen: Normal bowel sounds, Soft Musculoskeletal: Normal sensory function, Normal motor function Skin: Dry, Intact Psych/Mental Status: Mental status NL, Mood NL Medications Current Medications Medications Dose Ordered Sig/Derrick Route Start Time Stop Time Status Last Admin Dose Admin Ondansetron HCl 4 mg Q4HP PRN IV 07/01/25 22:15 Docusate Sodium 100 mg BIDPRN PRN PO 07/01/25 22:15 Morphine Sulfate 2 mg Q4HPRN PRN IV 07/01/25 22:15 Lactated Ringer's 1,000 ml @ 125 mls/hr Q8H IV 07/02/25 09:45 07/05/25 08:55 125 MLS/HR Lisinopril 40 mg DAILY PO 07/02/25 10:00 07/05/25 09:07 40 MG Vancomycin HCl 250 ml @ 250 mls/hr Q1H IV 07/02/25 13:30 07/02/25 15:29 Cancel Cefepime HCl 50 ml @ 12.5 mls/hr Q8H IV 07/04/25 17:00 07/05/25 08:49 12.5 MLS/HR Clindamycin Phosphate 50 ml @ 50 mls/hr BID IV 07/04/25 22:00 07/05/25 09:09 50 MLS/HR Laboratory Results Laboratory Tests 07/05/25 06:20 Chemistry Test 07/05/25 06:20 Albumin 3.7 g/dL (3.2-4.8) Calcium Level 8.8 mg/dL (8.7-10.4) Total Protein 6.5 g/dL (5.7-8.2) LFT Test 07/05/25 06:20 Alanine Aminotransferase (ALT) 39 U/L (7-40) Alkaline Phosphatase 85 U/L (46-116) Aspartate Amino Transferase (AST) 18 U/L (13-40) Total Bilirubin 0.4 mg/dL (0.2-1.0) Urinalysis Test 07/01/25 18:55 Urine Color Yellow (Yellow) Urine Clarity Clear (Clear) Urine pH 6.0 (5.0-9.0) Urine Specific [place] > 1.050 (1.001-1.035) Urine Protein Negative (Negative) Urine Ketones Negative (Negative) Urine Blood Negative /uL (Negative) Urine Nitrite Negative (Negative) Urine Bilirubin Negative (Negative) Urine Urobilinogen Normal mg/dL (Negative) Urine Leukocyte Esterase Negative /uL (Negative) Urine RBC 2 /hpf (0 - 3) Urine Microscopic WBC 5 /HPF (0-3) H Urine Squamous Epithelial Cells Few /hpf (<5) Urine Bacteria None seen /hpf (None Seen) Urine Glucose Normal mg/dL (Normal) Microbiology Microbiology Date/Time Source Procedure Growth Status 07/02/25 17:25 Buttock Gram Stain - Final Resulted 07/02/25 17:25 Buttock Wound Culture - Preliminary Resulted 07/01/25 23:40 Blood Blood Culture - Preliminary NO GROWTH AFTER 72 HOURS OF INCUBATION. Resulted Labs and/or images reviewed: Labs reviewed by me, Image(s) reviewed by me Assessment/Plan Assessment/Plan Impression: -ruled out sepsis, cellulitis to right buttock and perineal area -obesity -primary hypertension -polycystic kidney disease Plan: -continue antibiotic therapy with cefepime and clindamycin -discussed with the patient discharge plan. Awaiting wound cultures -continue antihypertensives -reassess for discharge in a.m. Total time spent with patient discussing and formulating plan of care: 35 minutes. This medical document was created using an electronic medical record system with [employer] dictation system. Although this document has been carefully reviewed, there may still be some phonetic and typographical errors. These areas are purely typographical due to imperfections of the software programs, and do not reflect any compromise in the patient's medical care. l Plan discussed with: Patient, Other (RN) Date of Service: Jul 06, 2025 Billing Provider: DANN PHILIP NP Common Visit Codes: [id number] INP/OBS CARE(HIGH) DANN PHILIP NP Jul 05, 2025 16:10
[2025-07-06] VITALS (7 sets, daily range): BP systolic 94–136; BP diastolic 56–70; PULSE 54–79; RESP 16–20; TEMP 36.1; O2SAT 54–100
[2025-07-06] MEDS: CEFEPIME 2GM/50ML NS 50 ML IV SCH (04:48)
[2025-07-06 06:30] LABS: Hematocrit 37.4 % (41.0-53.0); Hemoglobin 13.2 g/dL (13.5-17.5); Mean Corpuscular Hemoglobin 32.7 pg (28.0-32.0); Mean Corpuscular Volume 92.5 fL (80.0-100.0); Nucleated Red Blood Cells % 0.0 %
[2025-07-06 06:42] LABS: Alanine Aminotransferase 33 U/L (7-40); Albumin 3.5 g/dL (3.2-4.8); Alkaline Phosphatase 81 U/L (46-116); Anion Gap 7 (5-15); BUN/Creatinine Ratio 14.1 (10.0-20.0); Blood Urea Nitrogen 12 mg/dL (9-23); Calcium 8.7 mg/dL (8.7-10.4); Carbon Dioxide 27 mmol/L (20-31); Chloride 106 mmol/L (98-107); Glucose 93 mg/dL (74-106); Potassium 4.4 mmol/L (3.5-5.1); Sodium 140 mmol/L (136-145); Total Protein 6.2 g/dL (5.7-8.2)
[2025-07-06 06:43] LABS: Bilirubin, Total 0.4 mg/dL (0.2-1.0)
[2025-07-06] MEDS ORDERED: BACDST PO (11:43)
--- NOTE | 2025-07-06 11:49 | DVHDS2 ---
Discharge Summary Date of Admission Jul 01, 2025 at 22:21 Date of Discharge: Jul 06, 2025 Admitting Diagnosis Sepsis due to abscess Labs/Diagnostic Data: Laboratory Results Test 07/06/25 05:16 07/04/25 06:05 07/03/25 13:56 07/02/25 11:33 White Blood Count 7.1 10^3/uL (4.4-10.8) Red Blood Count 4.04 10^6/uL (4.5-5.90) Hemoglobin 13.2 g/dL (13.5-17.5) Hematocrit 37.4 % (41.0-53.0) Mean Corpuscular Volume 92.5 fL (80.0-100.0) Mean Corpuscular Hemoglobin 32.7 pg (28.0-32.0) Mean Corpuscular Hemoglobin Concent 35.4 g/dL (32.0-36.0) Red Cell Distribution Width 12.2 % (11.8-14.3) Platelet Count 194 10^3/uL (140-450) Mean Platelet Volume 8.8 fL (6.9-10.8) Neutrophils (%) (Auto) 62.9 % (37.0-80.0) Lymphocytes (%) (Auto) 27.6 % (10.0-50.0) Monocytes (%) (Auto) 7.8 % (0.0-12.0) Eosinophils (%) (Auto) 1.3 % (0.0-7.0) Basophils (%) (Auto) 0.4 % (0.0-2.0) Neutrophils # (Auto) 4.5 10 ^3/uL (1.6-8.6) Lymphocytes # (Auto) 2.0 10 ^3/uL (0.4-5.4) Monocytes # (Auto) 0.6 10 ^3/uL (0-1.3) Eosinophils # (Auto) 0.1 10 ^3/uL (0-0.8) Basophils # (Auto) 0 10 ^3/uL (0-0.2) Nucleated Red Blood Cells 0.0 % Sodium Level 140 mmol/L (136-145) Potassium Level 4.4 mmol/L (3.5-5.1) Chloride Level 106 mmol/L (98-107) Carbon Dioxide Level 27 mmol/L (20-31) Anion Gap 7 (5-15) Blood Urea Nitrogen 12 mg/dL (9-23) Creatinine 0.85 mg/dL (0.700-1.30) Glomerular Filtration Rate Calc 113 mL/min (>90) BUN/Creatinine Ratio 14.1 (10.0-20.0) Serum Glucose 93 mg/dL (74-106) Calcium Level 8.7 mg/dL (8.7-10.4) Total Bilirubin 0.4 mg/dL (0.2-1.0) Aspartate Amino Transferase (AST) 15 U/L (13-40) Alanine Aminotransferase (ALT) 33 U/L (7-40) Alkaline Phosphatase 81 U/L (46-116) Total Protein 6.2 g/dL (5.7-8.2) Albumin 3.5 g/dL (3.2-4.8) C-Reactive Protein High Sensitivity 3.01 mg/dL (<1.0) Vancomycin Level Trough 6.6 ug/mL (5-10) HIV (1&2) Antibody Negative (Negative) Test 07/02/25 01:34 07/01/25 23:40 07/01/25 18:55 07/01/25 13:37 Lactic Acid Level 0.8 mmol/L (0.4-2.0) Direct Bilirubin 0.2 mg/dL (<0.3) Triglycerides Level 165 mg/dL (< 150) Cholesterol Level 174 mg/dL (< 200) LDL Cholesterol 134 mg/dL (< 100) HDL Cholesterol 33 mg/dL (40-59) Urine Color Yellow (Yellow) Urine Clarity Clear (Clear) Urine pH 6.0 (5.0-9.0) Urine Specific [place] > 1.050 (1.001-1.035) Urine Protein Negative (Negative) Urine Ketones Negative (Negative) Urine Blood Negative /uL (Negative) Urine Nitrite Negative (Negative) Urine Bilirubin Negative (Negative) Urine Urobilinogen Normal mg/dL (Negative) Urine Leukocyte Esterase Negative /uL (Negative) Urine RBC 2 /hpf (0 - 3) Urine Microscopic WBC 5 /HPF (0-3) Urine Squamous Epithelial Cells Few /hpf (<5) Urine Bacteria None seen /hpf (None Seen) Urine Glucose Normal mg/dL (Normal) Urine Opiates Screen Neg (NEGATIVE) Urine Fentanyl Screen Neg (NEGATIVE) Urine Barbiturates Screen Neg (NEGATIVE) Urine Phencyclidine Screen Neg (NEGATIVE) Urine Amphetamines Screen Neg (NEGATIVE) Urine Benzodiazepines Screen Neg (NEGATIVE) Urine Cocaine Screen Neg (NEGATIVE) Urine Cannabinoids Screen Neg (NEGATIVE) Erythrocyte Sedimentation Rate 46 mm/hr (0-20) Prothrombin Time 9.8 sec (9.3-11.8) Prothrombin Time INR 0.92 (0.9-1.15) Activated Partial Thromboplast Time 29.5 SEC (24.5-34.5) Hemoglobin A1c 5.0 % A1C (<5.7) Other Laboratory Tests 07/06/25 05:16 Brief Hx & Hospital Course: History of Present Illness Tony Norwood is a 40-year-old male with past medical history of hypertension, came to the ED with chief complaints of rectal pain, groin pain since 1 week. Patient states that 1st he had a rash on his right buttock and groin which slowly increased in size and now is draining blood and pus. Patient also states that he had a fever on Saturday, is sexually active. CT scan showed Cholelithiasis without evidence of acute cholecystitis. Polycystic kidneys with additional multiple hypodense hepatic lesions and subcentimeter hepatic lesions which do not measure as simple fluid: further workup needed. Patient is admitted for further evaluation management. Course of hospitalization: Patient was started on IV antibiotic therapy with clindamycin and cefepime. Surgical consultation was obtained, but given patient's abscess is spontaneous draining, any surgical intervention will be held at this time. Patient's abscess to right buttock and left perineal area have both improved dramatically. Patient states that his pain has resolved. Patient will be discharged home and be continued on antibiotic therapy with Bactrim DS one tablet b.i.d. for additional seven days. He will follow up with his PCP in 1-2 weeks. All questions answered. Physical examination General: Alert and Oriented x3. No acute distress. Well-nourished. Eyes: EOMI. Anicteric. HENT: Moist mucous membranes. Lungs: Clear to auscultation bilaterally. No accessory muscle use. Cardiovascular: Regular rate and rhythm. No murmur. No JVD. Abdomen: Soft, non-tender and non-distended. No palpable masses. Extremities: No edema. Non-tender. Skin: No rashes or lesions. Warm. Neurologic: No focal neurological deficits. CN II-XII grossly intact, but not individually tested. Psychiatric: Cooperative. Appropriate mood and affect. Total time spent with patient discussing and formulating plan of care: 35 minutes. This medical document was created using an electronic medical record system with [employer] system. Although this document has been carefully reviewed, there may still be some phonetic and typographical errors. These areas are purely typographical due to imperfections of the software programs, and do not reflect any compromise in the patient's medical care. Consults/Reason for consult Surgical consultation: Assess for possible I and D of abscess Condition at Discharge: Fair Final Diagnosis/Problems List Cellulitis to buttocks Abscess to perineal area Polycystic kidney disease Primary hypertension Morbid obesity Discharge Disposition: Home Discharge Instruct/Medications Diet: Regular Activity: No Restrictions, As Tolerated Follow Up/Referral: PCP in one week Medications: Bactrim DS one tablet b.i.d. x7 days Scheduled Lisinopril (Lisinopril), 1 TAB PO DAILY, (Reported) Sulfamethoxazole W/Trimethopri (Bactrim Ds Tablet), 1 TAB PO BID 36 Discharge Statement: "Patient was advised to return to the ER or call 911 if any headaches, dizziness, shortness of breath, chest pain, abdominal pain, bleeding, fevers, or worsening of medical condition. Patient was counseled about treatment plan, medications, possible side effects, patientverbalized understanding. All questions were answered to the best of my ability. This discharge took greater then 30 minutes in planning, reviewing documentation, counseling the patient, and discussing with other team members." ASSESSMENT ASSESSMENT Assessment Cellulitis to buttocks Abscess to perineal area Date of Service: Jul 06, 2025 Billing Provider: DANN PHILIP NP Common Visit Codes: [id number] DISCH DAY >30min DANN PHILIP NP Jul 06, 2025 11:49
== END 2025-07-06 13:55 | disposition home or self-care (01) | DRG 383 ==
LOC: ER 12:05 → TELE-EAST 22:15 → OVERFLOW 22:21 → TELE-EAST 23:23
PROVIDERS: ADMIT Nurse Practitioner Acute Care; ATTEND Nurse Practitioner Acute Care
DX: L03.317 Cellulitis of buttock (principal); L02.215 Cutaneous abscess of perineum; Z68.43 Body mass index [BMI] 50.0-59.9, adult; L03.315 Cellulitis of perineum; L02.31 Cutaneous abscess of buttock; E66.01 Morbid (severe) obesity due to excess calories; I73.9 Peripheral vascular disease, unspecified; K80.20 Calculus of gallbladder without cholecystitis without obstruction; E78.5 Hyperlipidemia, unspecified; I15.1 Hypertension secondary to other renal disorders; R79.89 Other specified abnormal findings of blood chemistry; F17.210 Nicotine dependence, cigarettes, uncomplicated; Q61.3 Polycystic kidney, unspecified; Z82.49 Family history of ischemic heart disease and other diseases of the circulatory system; Z83.3 Family history of diabetes mellitus; Z80.0 Family history of malignant neoplasm of digestive organs
CPT/HCPCS: 36415; 74177; 80048; 80053; 80061; 80076; 80202; 80307; 81001; 82565; 83036; 83605; 85025; 85610; 85652; 85730; 86141; 86703; 87040; 87081; 87205; 96365; G0378; J0692; J3490